=== PATIENT | female | born 1960 | race Caucasian/White ===

== ENCOUNTER 2020-11-21 16:24 | Emergency (ER) | payer OTHER, BC ==
[2020-11-21 16:47] VITALS: BP 132/93; PULSE 81; TEMP 98.3; BMI 23.8
[2020-11-21] MEDS ORDERED: DIPHTH,PERTUSS(ACELL),TET 0.5 ML DISP.SYRIN IM ONE ×2 (17:06→17:19)
[2020-11-21] MEDS ORDERED: ACETAMINOPHEN 325 MG TABLET (FP) ONE (17:10)
[2020-11-21] MEDS ORDERED: ACETAMINOPHEN 325 MG TABLET (FP) PO ONE (17:19)
== END 2020-11-21 17:25 | disposition home or self-care (01) ==
LOC: FER 16:24
PROC: 3E0234Z Introduction of Serum, Toxoid and Vaccine into Muscle, Percutaneous Approach (ICD-10-PCS; principal; 2020-11-21)
DX: S51.052A Open bite, left elbow, initial encounter (principal); W50.3XXA Accidental bite by another person, initial encounter; Y92.811 Bus as the place of occurrence of the external cause
CPT/HCPCS: 90715; 99284-25